=== PATIENT | male | born 1940 | race Caucasian/White ===

== ENCOUNTER 2020-02-21 10:40 | Inpatient (IN) | payer MEDICARE, OTHER ==
[2020-02-21] VITALS: BP 79/36
[~2020-02-21] VITALS: Ht 167.6 cm; Wt 67.2 kg
[2020-02-21 12:02] LABS: CHLORIDE 113 mEq/L (98-107)
[2020-02-21 12:05] LABS: HEMATOCRIT. 28.6 % (42.0-52.0); HEMOGLOBIN. 9.3 g/dL (14.0-18.0); MEAN CORPUSCULAR HEMOGLOBIN 29.5 pg (28.0-32.0); MEAN CORPUSCULAR VOLUME 90.4 fL (80.0-94.0); MEAN PLATELET VOLUME 7.8 fl (7.4-10.4); PLATELET 51 x1000/uL (130-400); RED BLOOD CELL COUNT 3.17 mill/uL (4.7-6.1); RED CELL DISTRIBUTION WIDTH 13.8 % (11.6-14.6)
[2020-02-21 12:06] LABS: ETHANOL BLOOD < 10 mg/dL
[2020-02-21 12:24] LABS: BG BASE EXCESS -8.2 mmol/L (-2.0-2.0); BG CARBOXYHEMOGLOBIN 0.3 % (0.5-1.5); BG DEOXYHEMOGLOBIN 2.9 % (0.0-5.0); BG FRACTION INSPIRED OXYGEN 28; BG HCO3 ACT 17.5 mmol/L (22.0-26.0); BG METHEMOGLOBIN 0.3 % (0.0-1.5); BG OXYGEN SATURATION 97.1 % (92.0-98.5); BG OXYHEMOGLOBIN 96.5 % (94.0-97.0); BG PCO2 36.4 mmHg (35.0-45.0); BG PH 7.299 (7.350-7.450); BG SAMPLE SITE RIGHT RADIAL; BG TOTAL HEMOGLOBIN 8.7 g/dL (12.0-18.0); BG VENT MODE NASAL CANNULA
[2020-02-21] MEDS ORDERED: AZITHROMYCIN 500 MG in DEXT 5% WATER 250 ML IV ONE (12:30)
[2020-02-21] MEDS ORDERED: SODIUM CHLORIDE 0.9% 1000ML BAG (SEPSIS BOLUS) IV ONE (12:30)
[2020-02-21] MEDS ORDERED: CEFTRIAXONE 1 G PREMIX 50 ML IV ONE (12:30)
[2020-02-21 12:46] LABS: PLATELET ESTIMATE DECREASED
[2020-02-21 12:55] LABS: INR 1.1; PROTHROMBIN TIME 12.1 sec (9.6-11.0)
[2020-02-21 16:40] LABS: CLARITY URINE CLOUDY (CLEAR); COLOR URINE YELLOW (YELLOW); KETONES URINE NEGATIVE (NEGATIVE); LEUKOCYTE ESTERASE URINE NEGATIVE (NEGATIVE); NITRITE URINE NEGATIVE (NEGATIVE); OCCULT BLOOD URINE 3+ (NEGATIVE); PROTEIN URINE 2+ (NEGATIVE); SPECIFIC GRAVITY URINE 1.012 (1.005-1.030)
[2020-02-21 16:52] LABS: *AMPHETAMINES SCREEN URINE NEGATIVE (NEGATIVE); *BARBITURATES SCREEN URINE NEGATIVE (NEGATIVE)
[2020-02-21 16:53] LABS: *BENZODIAZEPINES SCREEN URINE NEGATIVE (NEGATIVE); *COCAINE SCREEN URINE NEGATIVE (NEGATIVE); METHADONE URINE SCREEN NEGATIVE (NEGATIVE); OPIATES URINE SCREEN NEGATIVE (NEGATIVE); PHENCYCLIDINE URINE SCREEN NEGATIVE (NEGATIVE)
[2020-02-21 16:54] LABS: CANNABINOID URINE SCREEN NEGATIVE (NEGATIVE)
[2020-02-21 20:00] VITALS: BP 87/39
[2020-02-21] MEDS ORDERED: ROSU20TA2 PO (21:32)
[2020-02-21] MEDS ORDERED: APIX2.5T PO (21:32)
[2020-02-21] MEDS ORDERED: OXYC-100 MT (21:32)
[2020-02-21] MEDS ORDERED: DILT30TA38 PO (21:32)
[2020-02-21] MEDS ORDERED: FURO-151 PO (21:32)
[2020-02-21] MEDS ORDERED: DEXA4TAB69 PO (21:32)
[2020-02-21] MEDS ORDERED: POTA20TA82 PO (21:32)
[2020-02-21] MEDS ORDERED: LISI-650 PO (21:32)
[2020-02-21] MEDS: SODIUM CHLORIDE 0.9% 1,000 ML IV SCH (22:30)
[2020-02-21 22:43] VITALS: BP 87/39
[2020-02-22] VITALS (87 sets, daily range): BP systolic 70–159; BP diastolic 30–78
[2020-02-22] MEDS: PIPERACILLIN/TAZOBACTAM 2.25 G in DEXTROSE 5% WATER 50 ML IV SCH ×2 (00:37→08:30)
[2020-02-22] MEDS: VANCOMYCIN 1,000 MG in DEXT 5% WATER 250 ML IV SCH (00:37)
[2020-02-22] MEDS ORDERED: FUROSEMIDE 20MG/2ML VIAL IVP SCH (02:00)
[2020-02-22] MEDS ORDERED: ACETAMINOPHEN 325MG TABLET PO PRN (02:00)
[2020-02-22] MEDS ORDERED: ACETAMINOPHEN 650MG SUPP PR PRN (02:00)
[2020-02-22] MEDS ORDERED: NOREPINEPHRINE 32 MG in DEXT 5% WATER 468 ML IV PRN (03:00)
[2020-02-22] MEDS: PHENYLEPHRINE 40 MG in DEXT 5% WATER 246 ML IV PRN ×4 (03:48→23:44)
[2020-02-22] MEDS: IPRATROPIUM/ALBUTEROL 0.5-3(2.5)MG/3ML NEB HHN SCH ×3 (04:05→20:25)
[2020-02-22 05:50] LABS: HEMATOCRIT. 27.8 % (42.0-52.0); MEAN CORPUSCULAR HEMOGLOBIN 29.9 pg (28.0-32.0); MEAN CORPUSCULAR VOLUME 92.4 fL (80.0-94.0); MEAN PLATELET VOLUME 8.5 fl (7.4-10.4); RED BLOOD CELL COUNT 3.01 mill/uL (4.7-6.1); RED CELL DISTRIBUTION WIDTH 14.3 % (11.6-14.6)
[2020-02-22] MEDS: FAMOTIDINE 20MG/2ML VIAL IV SCH (08:30)
[2020-02-22] MEDS ORDERED: LIDOCAINE HCL 1% 20ML VIAL (Pyxis) INJ ONE (09:18)
[2020-02-22] MEDS: DEXAMETHASONE 4MG TABLET PO SCH ×3 (10:38→16:28)
[2020-02-22] MEDS: METRONIDAZOLE 500 MG PREMIX 100 ML IV SCH ×2 (10:38→18:47)
[2020-02-22] MEDS ORDERED: DEXTROSE 50% WATER 50ML SYRINGE IV PRN (11:45)
[2020-02-22] MEDS: CEFEPIME 1,000 MG in DEXTROSE 5% WATER 50 ML IV SCH (11:50)
[2020-02-22] MEDS: SODIUM CHLORIDE 0.9% 1,000 ML IV SCH (11:50)
[2020-02-22 12:34] LABS: HEPATITIS B SURFACE ANTIGEN NEGATIVE
[2020-02-22] MEDS: DEXT 5%/0.45% NACL 1000ML 1,000 ML IV SCH (13:01)
[2020-02-22 13:03] LABS: HEPATITIS A AB IGM NEGATIVE (NEGATIVE)
[2020-02-22 13:11] LABS: PLATELET 36 x1000/uL (130-400); PLATELET ESTIMATE MARKEDLY DECREASED
[2020-02-22] MEDS: FILGRASTIM-TBO 300 MCG/0.5 ML SYRINGE SQ SCH (21:36)
[2020-02-23] VITALS (84 sets, daily range): BP systolic 84–123; BP diastolic 37–72
[2020-02-23] MEDS: IPRATROPIUM/ALBUTEROL 0.5-3(2.5)MG/3ML NEB HHN SCH ×6 (00:51→21:22)
[2020-02-23] MEDS: METRONIDAZOLE 500 MG PREMIX 100 ML IV SCH ×3 (03:39→18:01)
[2020-02-23] MEDS: DEXT 5%/0.45% NACL 1000ML 1,000 ML IV SCH (03:40)
[2020-02-23 05:26] LABS: HEMATOCRIT. 27.5 % (42.0-52.0); HEMOGLOBIN. 8.9 g/dL (14.0-18.0); MEAN CORPUSCULAR HEMOGLOBIN 29.8 pg (28.0-32.0); MEAN CORPUSCULAR VOLUME 91.5 fL (80.0-94.0); MEAN PLATELET VOLUME 7.4 fl (7.4-10.4); RED CELL DISTRIBUTION WIDTH 14.8 % (11.6-14.6)
[2020-02-23 05:46] LABS: PHOSPHORUS 3.8 mg/dL (2.5-4.9)
[2020-02-23 05:54] LABS: PLATELET 22 x1000/uL (130-400)
[2020-02-23] MEDS: DEXAMETHASONE 4MG TABLET PO SCH ×3 (08:15→16:27)
[2020-02-23] MEDS: FAMOTIDINE 20MG/2ML VIAL IV SCH (08:15)
[2020-02-23] MEDS ORDERED: FILGRASTIM 300 MCG/ML VIAL SUBCUT SCH (09:00)
[2020-02-23] MEDS: CEFEPIME 1,000 MG in DEXTROSE 5% WATER 50 ML IV SCH (11:02)
[2020-02-23] MEDS: VANCOMYCIN 1,000 MG in DEXT 5% WATER 250 ML IV SCH (12:41)
[2020-02-23 13:37] LABS: PLATELET ESTIMATE MARKEDL
[2020-02-23] MEDS: SODIUM BICARBONATE 100 MEQ in DEXTROSE 5% WATER 1,000 ML IV SCH (15:06)
[2020-02-23] MEDS: CEFTRIAXONE 2 G in DEXTROSE 5% WATER 50 ML IV SCH (15:06)
[2020-02-23] MEDS: MORPHINE SULFATE 2 MG/ML CPJ (NOT FOR IM USE) IV PRN ×2 (18:02→22:49)
[2020-02-23] MEDS: FILGRASTIM-TBO 300 MCG/0.5 ML SYRINGE SQ SCH (20:40)
[2020-02-23] MEDS: LEVETIRACETAM 500MG PREMIX 100 ML IV SCH (20:40)
[2020-02-23 20:46] LABS: VITAMIN B12 SERUM >2000 pg/mL pg/mL (211-911)
[2020-02-24] VITALS (101 sets, daily range): BP systolic 79–139; BP diastolic 39–116
[2020-02-24] MEDS: IPRATROPIUM/ALBUTEROL 0.5-3(2.5)MG/3ML NEB HHN SCH ×5 (00:52→20:22)
[2020-02-24] MEDS: METRONIDAZOLE 500 MG PREMIX 100 ML IV SCH ×3 (03:15→18:20)
[2020-02-24] MEDS: SODIUM BICARBONATE 100 MEQ in DEXTROSE 5% WATER 1,000 ML IV SCH ×2 (05:00→19:53)
[2020-02-24 06:33] LABS: HEMATOCRIT. 22.4 % (42.0-52.0); HEMOGLOBIN. 7.5 g/dL (14.0-18.0); MEAN CORPUSCULAR HEMOGLOBIN 29.8 pg (28.0-32.0); MEAN CORPUSCULAR VOLUME 88.9 fL (80.0-94.0); MEAN PLATELET VOLUME 8.1 fl (7.4-10.4); RED BLOOD CELL COUNT 2.52 mill/uL (4.7-6.1); RED CELL DISTRIBUTION WIDTH 14.3 % (11.6-14.6)
[2020-02-24 06:49] LABS: PLATELET 17 x1000/uL (130-400)
[2020-02-24 07:05] LABS: PHOSPHORUS 3.9 mg/dL (2.5-4.9)
[2020-02-24] MEDS: DEXAMETHASONE 4MG TABLET PO SCH ×3 (09:00→16:22)
[2020-02-24] MEDS: LEVETIRACETAM 500MG PREMIX 100 ML IV SCH ×2 (09:00→20:15)
[2020-02-24] MEDS: FAMOTIDINE 20MG/2ML VIAL IV SCH (09:00)
[2020-02-24 09:51] LABS: NUCLEATED RED BLOOD CELLS 1 /100 WBC; PLATELET ESTIMATE MARKEDLY DECREASED
[2020-02-24] MEDS: MIDODRINE HCL 5MG TABLET PO SCH ×2 (11:36→21:21)
[2020-02-24] MEDS ORDERED: MIDODRINE HCL 5MG TABLET PO SCH (13:00)
[2020-02-24 13:06] LABS: HIV SCREEN 4G Non Reactive (Non Reactive)
[2020-02-24] MEDS: CEFTRIAXONE 2 G in DEXTROSE 5% WATER 50 ML IV SCH (14:54)
[2020-02-24] MEDS: FILGRASTIM-TBO 300 MCG/0.5 ML SYRINGE SQ SCH (21:42)
[2020-02-25] VITALS (29 sets, daily range): BP systolic 86–133; BP diastolic 44–83
[2020-02-25] MEDS: IPRATROPIUM/ALBUTEROL 0.5-3(2.5)MG/3ML NEB HHN SCH ×6 (00:40→21:29)
[2020-02-25] MEDS: METRONIDAZOLE 500 MG PREMIX 100 ML IV SCH ×3 (05:08→19:26)
[2020-02-25] MEDS: MIDODRINE HCL 5MG TABLET PO SCH ×3 (05:08→21:23)
[2020-02-25 06:49] LABS: HEMATOCRIT. 25.5 % (42.0-52.0); HEMOGLOBIN. 8.6 g/dL (14.0-18.0); MEAN CORPUSCULAR HEMOGLOBIN 29.9 pg (28.0-32.0); MEAN CORPUSCULAR VOLUME 89.2 fL (80.0-94.0); MEAN PLATELET VOLUME 8.3 fl (7.4-10.4); RED BLOOD CELL COUNT 2.86 mill/uL (4.7-6.1); RED CELL DISTRIBUTION WIDTH 14.5 % (11.6-14.6)
[2020-02-25 06:51] LABS: PHOSPHORUS 4.7 mg/dL (2.5-4.9)
[2020-02-25 08:44] LABS: NUCLEATED RED BLOOD CELLS 1 /100 WBC
[2020-02-25 08:45] LABS: PLATELET 19 x1000/uL (130-400); PLATELET ESTIMATE MARKEDLY DECREASED
[2020-02-25] MEDS: FAMOTIDINE 20MG/2ML VIAL IV SCH (11:11)
[2020-02-25] MEDS: SODIUM BICARBONATE 100 MEQ in DEXTROSE 5% WATER 1,000 ML IV SCH (11:12)
[2020-02-25] MEDS: DEXAMETHASONE 4MG TABLET PO SCH ×3 (11:12→17:41)
[2020-02-25] MEDS: LEVETIRACETAM 500MG PREMIX 100 ML IV SCH ×2 (11:48→21:23)
[2020-02-25] MEDS: CEFTRIAXONE 2 G in DEXTROSE 5% WATER 50 ML IV SCH (15:54)
[2020-02-25] MEDS: FILGRASTIM-TBO 300 MCG/0.5 ML SYRINGE SQ SCH (21:23)
[2020-02-26] VITALS: BP 120/64
[2020-02-26] MEDS: IPRATROPIUM/ALBUTEROL 0.5-3(2.5)MG/3ML NEB HHN SCH ×4 (00:52→13:14)
[2020-02-26] MEDS: METRONIDAZOLE 500 MG PREMIX 100 ML IV SCH ×2 (03:28→10:37)
[2020-02-26 04:00] VITALS: BP 117/59
[2020-02-26] MEDS: MIDODRINE HCL 5MG TABLET PO SCH ×2 (04:57→13:33)
[2020-02-26] MEDS: LEVETIRACETAM 500MG PREMIX 100 ML IV SCH (08:31)
[2020-02-26] MEDS: FAMOTIDINE 20MG/2ML VIAL IV SCH (08:31)
[2020-02-26] MEDS: DEXAMETHASONE 4MG TABLET PO SCH ×2 (08:31→13:00)
[2020-02-26 08:51] VITALS: BP 123/63
[2020-02-26] MEDS: SODIUM BICARBONATE 100 MEQ in DEXTROSE 5% WATER 1,000 ML IV SCH (10:54)
[2020-02-26] MEDS ORDERED: MORPHINE SULFATE 2 MG/ML CPJ (NOT FOR IM USE) IV PRN (11:30)
[2020-02-26 11:42] VITALS: BP 122/59
[2020-02-26 13:33] VITALS: BP 122/59
[2020-02-26] MEDS: CEFTRIAXONE 2 G in DEXTROSE 5% WATER 50 ML IV SCH (15:00)
[2020-02-26 16:25] VITALS: BP 132/54
== END 2020-02-26 15:50 | disposition hospice, home (50) | DRG 871 ==
LOC: ER 11:01 → 6WST 16:32 → ENRESERV 20:43 → CVICU 02-22 01:10 → 5WST 02-25 08:15
PROVIDERS: ADMIT Internal Medicine; ATTEND Internal Medicine
PROC: 02HV33Z Insertion of Infusion Device into Superior Vena Cava, Percutaneous Approach (ICD-10-PCS; 2020-02-22)
PROC: B548ZZA Ultrasonography of Superior Vena Cava, Guidance (ICD-10-PCS; 2020-02-22)
PROC: 4A10X4Z Monitoring of Central Nervous Electrical Activity, External Approach (ICD-10-PCS; principal; 2020-02-24)
DX: A41.59 Other Gram-negative sepsis (principal); J96.01 Acute respiratory failure with hypoxia; R65.21 Severe sepsis with septic shock; N17.0 Acute kidney failure with tubular necrosis; E43 Unspecified severe protein-calorie malnutrition; G92 Toxic encephalopathy; D61.810 Antineoplastic chemotherapy induced pancytopenia; J69.0 Pneumonitis due to inhalation of food and vomit; J44.0 Chronic obstructive pulmonary disease with (acute) lower respiratory infection; C79.31 Secondary malignant neoplasm of brain; C79.51 Secondary malignant neoplasm of bone; C34.90 Malignant neoplasm of unspecified part of unspecified bronchus or lung; I13.0 Hypertensive heart and chronic kidney disease with heart failure and stage 1 through stage 4 chronic kidney disease, or unspecified chronic kidney disease; I48.20 Chronic atrial fibrillation, unspecified; I42.9 Cardiomyopathy, unspecified; Z66 Do not resuscitate; E87.8 Other disorders of electrolyte and fluid balance, not elsewhere classified; N18.3 Chronic kidney disease, stage 3 (moderate); E78.00 Pure hypercholesterolemia, unspecified; R74.0 Nonspecific elevation of levels of transaminase and lactic acid dehydrogenase [LDH]; I27.20 Pulmonary hypertension, unspecified; T45.1X5A Adverse effect of antineoplastic and immunosuppressive drugs, initial encounter; Z51.5 Encounter for palliative care; I50.9 Heart failure, unspecified; Z79.01 Long term (current) use of anticoagulants; Z79.84 Long term (current) use of oral hypoglycemic drugs; Z79.891 Long term (current) use of opiate analgesic; Z79.899 Other long term (current) drug therapy; Z68.23 Body mass index [BMI] 23.0-23.9, adult; Z82.49 Family history of ischemic heart disease and other diseases of the circulatory system
CPT/HCPCS: 36415; 36600; 71045; 76937; 80048; 80053; 80305; 80320; 81003; 82140; 82375; 82607; 82746; 82805; 82962; 83036; 83605; 83735; 84100; 84145; 84439; 84443; 84481; 84484; 85025; 86705; 86709; 86803; 87077; 87186; 87340; 87389; 92610; 93005; 93306; 93970; 94640; 96365; 99291; C1725; J0456; J0692; J0696; J1442; J1940; J1953; J2270; J2370; J2543; J3370; J3490; J7030; J7060; J7070; J8540; G0480